=== PATIENT | female | born 1990 | race Caucasian/White ===

== ENCOUNTER 2024-04-17 12:00 | Outpatient (RCR) | payer OTHER, SELFPAY | END 2024-10-10 10:13 | disposition home or self-care (01) | LOC: HO.PT 12:00 | PROVIDERS: PCP Nurse Practitioner Adult Health; Visit Provider Internal Medicine | DX: M54.50 Low back pain, unspecified (principal); G89.29 Other chronic pain | CPT/HCPCS: 97014; 97110; 97140; 97162; 97530 ==